=== PATIENT | male | born 1980 | race Caucasian/White ===

== ENCOUNTER 2023-09-08 11:05 | Outpatient (REF) | payer MEDICAID, SELFPAY ==
[2023-09-08 13:24] LABS: MANUAL DIFF FLAG NO
[2023-09-08 13:41] LABS: Basophils Absolute Auto 0.1 X10*3/uL (0.0-0.2); Eosinophils Absolute Auto 0.1 X10*3/uL (0.0-0.4); Hematocrit 40.9 % (42.0-52.0); Hemoglobin 14.3 g/dl (14.0-18.0); Imm Gran Abs Auto 0.02 X10*3/uL (0.00-0.03); Imm Gran Pct Auto 0.3 % (0.0-0.4); Lymphocytes Absolute Auto 1.2 X10*3/uL (1.2-4.9); Lymphocytes Percent Auto 19.6 % (20-40); Mean Corpuscular Volume 88.5 fL (80.0-98.0); Mean Platelet Volume 10.8 fL (9.4-12.4); Monocytes Absolute Auto 0.5 X10*3/uL (0.1-1.2); Monocytes Percent Auto 8.6 % (2-11); Neutrophils Absolute Auto 4.2 x10*3/uL (2.0-8.3); Neutrophils Percent Auto 68.5 % (45-73); Platelet Count 302 X10*3/uL (160-400); Red Blood Count 4.62 X10*6/uL (4.60-5.80); Red Cell Distribution Width 11.9 % (11.0-16.0); White Blood Count 6.1 X10*3/uL (4.8-10.8)
[2023-09-08 14:12] LABS: Alanine Aminotransferase 13 U/L (0-40); Albumin Level 4.2 g/dL (3.5-5.0); Alkaline Phosphatase 61 U/L (39-117); Anion Gap 11 (12-20); Aspartate Amino Transferase 15 U/L (5-37); Bilirubin Direct 0.2 mg/dL (0.0-0.5); Bilirubin Total 0.6 mg/dL (0.0-1.0); Blood Urea Nitrogen 14 mg/dL (9-16); Calcium 9.6 mg/dL (8.4-10.2); Carbon Dioxide 31 mmol/L (22-29); Chloride 104 mmol/L (96-108); Cholesterol 191 mg/dL (<200); Estimated Glomerular Filt Rate > 60; Glucose Random 73 mg/dL (60-115); HDL Cholesterol 31 mg/dL (>40); LDL Cholesterol Calculated 139 mg/dL (<100); Potassium 3.9 mmol/L (3.3-5.1); Sodium 142 mmol/L (135-145); Total Protein 7.3 g/dL (6.5-8.0); Triglycerides 108 mg/dL (<150)
[2023-09-08 14:33] LABS: TSH reflex Free T4 1.36 uIU/mL (0.32-4.0); Vitamin D 25-OH Total 36.6 ng/mL (>30)
[2023-09-08 14:37] LABS: Estimated Average Glucose 105 mg/dL; Hemoglobin A1c % 5.3 % (<6.0)
[2023-09-11 14:23] LABS: Testosterone, Total 148 ng/dL (250-1100)
== END 2023-09-08 11:06 | disposition home or self-care (01) ==
LOC: HO.HHCL 11:05
PROVIDERS: Visit Provider Family Medicine
DX: E66.9 Obesity, unspecified (principal); E29.1 Testicular hypofunction; I10 Essential (primary) hypertension
CPT/HCPCS: 36415; 80048; 80061; 80076; 82306; 83036; 83735; 84403; 84443; 85025

== ENCOUNTER 2023-09-30 15:39 | Outpatient (REF) | payer MEDICAID, SELFPAY ==
--- NOTE | ~2023-09-30 | US_ITS ---
EXAMINATION: US SCROTUM CLINICAL INFORMATION: Testicular swelling. COMPARISON: None available. TECHNIQUE: A sonogram of the scrotum was performed assessing oh-scale appearance and color Doppler flow. Spectral Doppler analysis of the arterial and venous flow were performed in the testes bilaterally. FINDINGS: RIGHT: Right testicle measures 5.0 x 2.2 x 2.8 cm, volume 16.1 mL. No focal testicular parenchymal lesions are visualized. Spectral Doppler analysis of the arterial and venous flow is normal in the right testis. Right epididymal head is normal in size. The majority of the right epididymis is not seen, however, the head appears within normal limits. No right varicocele is seen. There is a markedly large right hydrocele, 2 largest measure completely, approximately measures greater than 9.5 x 7.0 x greater than 8.3 cm. Right epididymal Doppler flow is normal. LEFT: Left testicle measures 4.4 x 2.6 x 3.1 cm, volume 18.6 mL. No focal testicular parenchymal lesions are visualized. Spectral Doppler analysis of the arterial and venous flow is normal in the left testis. Left epididymal head is normal in size. No left varicocele is seen. Small left hydrocele is seen. Left epididymal Doppler flow is normal. US/US scrotum IMPRESSION: 1. Normal testes and epididymides. 2. Markedly large right hydrocele. 3. Small left hydrocele.
== END 2023-09-30 15:40 | disposition home or self-care (01) ==
LOC: HO.HMGCX 15:39
PROVIDERS: PCP Family Medicine; Visit Provider Family Medicine
DX: N50.89 Other specified disorders of the male genital organs (principal)
CPT/HCPCS: 76870

== ENCOUNTER 2024-01-04 11:17 | Outpatient (AMB) | payer MEDICAID, SELFPAY ==
--- NOTE | 2024-01-04 11:47 | MHC.OFFVIS ---
Intake Intake Visit Reasons: hydrocele Intake Note: NEW Patient presents today to established treatment for hydrocele Meds- None Allergies to Antibiotic- No Known Allergies Blood Thinner- None Patient stated he has a right testicle hydrocele, he has pain sometimes when he takes a shower. Also hurts when he touch it or he is sleeping. Cold Storage Supervisor Required: No Accompanied by: Self / Same As Patient Allergies NKDA Allergy (Uncoded 01/04/24 19:42) Unknown Medication List - Last Reconciled 01/04/24 by FRANCY Woods-EMMANUEL adalimumab (Humira(CF) Pen) inject one - 40 mg/0.4 mL pen every 2 weeks subcut atenolol 25 mg PO DAILY buprenorphine-naloxone 8-2 mg (Suboxone) 20 mg sublingual QAM buspirone 7.5 mg PO BID cholecalciferol (vitamin D3) (Vitamin D3) 25 mcg PO QAM lisinopril-hydrochlorothiazide 10-12.5 mg 1 tab PO DAILY secukinumab (Cosentyx Pen 300 mg/2 Pens () 150 mg subcut Q4W sennosides (senna) 17.2 mg PO DAILY HPI HPI Comments History of Present Illness Details Tanner is a pleasant 43-year-old male patient of Dr. Tovar. He has a past medical history of chronic hepatitis-C, traumatic brain injury, dyslipidemia, vitamin-D deficiency, nicotine dependence, opiate abuse, asthma, constipation, hyperlipidemia, psoriasis, anxiety, hypogonadism, and hypertension. He presents to the office today as a new patient for right-sided hydrocele as well as hypogonadism. In discussion with the patient today reports having followed up with his PCP at which time recommendations were made for urology referral due to large right-sided hydrocele and hypogonadism. In review of patient's chart it appears scrotal ultrasound was ordered and reviewed. These results were reviewed with the patient today. Normal testes and epididymides, markedly large right hydrocele, and small left hydrocele. In assessment of the patient today large right-sided hydrocele noted. Discussed further treatment options with surveillance monitoring verses in office drainage verses surgical intervention with hydrocelectomy. Discussed risks and benefits of these interventions at length. He otherwise denies any bothersome urinary issues or concerns. He denies urinary urgency, urinary frequency, incontinence, nocturia, hematuria, dysuria, foul smelling urine, changes to urinary stream, flank pain, fever, and or chills. He is happy with his current voiding parameters. In review of patient's chart it appears testosterone was ordered and performed 09/02 148. He reports low libido. He otherwise offers no other issues or concerns at this time. [facility] Medical History (Updated 01/04/24 @ 19:48 by DOTTIE Woods) Testicular swelling, right Chronic hepatitis C Traumatic brain injury Dyslipidemia Vitamin D deficiency Tobacco dependence Opioid abuse Asthma Constipation Hyperlipidemia Psoriasis Anxiety disorder Hypogonadism, male Essential hypertension Review of Systems Const Reports as per HPI Eyes Reports no additional complaints ENT Reports no additional complaints Card Reports as per HPI Resp Reports as per HPI GI Reports as per HPI Reports as per HPI Musc Reports as per HPI Neuro Reports as per HPI Psych Reports as per HPI Endo Reports no additional complaints Abraham/Lymph Reports no additional complaints Aller/Immun Reports no additional complaints Physical Exam Const General: cooperative, healthy appearing, comfortable, no acute distress, well developed, alert and awake Orientation/consciousness: patient oriented x3 Limitations: no limitations HEENT Head: Yes normal to inspection, Yes normocephalic and Yes atraumatic Ears: hearing grossly normal bilaterally Eyes General: appearance normal, both eyes and all related structures Neck Neck: Yes normal visual inspection and Yes trachea midline Chest Chest palpation & inspection: normal inspection of the chest Resp Effort & Inspection: normal respiratory effort and able to speak in complete sentences Cardio Rate: regular rate GI Inspection: Yes normal to inspection General: Yes no CVA tenderness Back/Spine/Pelvis Back: no CVA tenderness Skin General skin exam: no rashes or lesions noted Neuro General: patient oriented x3 Extrem General: Yes normal to inspection Psych Appearance: grossly normal and well kempt Mental Status: mental status grossly normal Speech and movement: Normal speech and movement present and Clear speech present Affect: normal affect Attitude: cooperative Thought process: Normal thought process present Thought content: Normal thought content present Insight: Fair insight present (Psych) Judgement: Fair judgement present (Psych) Results AMB Urinalysis, Automated UA Leukoctes 0 Ranjana/uL Last Edit by Teena Casanova CMA on 01/04/24 11:58 UA Nitrite Negative Last Edit by Teena Casanova CMA on 01/04/24 11:58 UA Urobilinogen 0.2 mg/dL Last Edit by Teena Casanovaeaston Casanova, [facility] on 01/04/24 11:58 UA Protein 0 mg/dL Last Edit by [facility], [facility] on 01/04/24 11:58 UA pH 6.0 Last Edit by [facility], [facility] on 01/04/24 11:58 UA Blood 0 Filiberto/uL Last Edit by [facility], [facility] on 01/04/24 11:58 UA Specific [place] 1.015 Last Edit by [facility], [facility] on 01/04/24 11:58 UA Ketone Negative Last Edit by [facility], [facility] on 01/04/24 11:58 UA Bilirubin 0 mg/dL Last Edit by [facility], [facility] on 01/04/24 11:58 UA Glucose 0 mg/dL Last Edit by [facility], [facility] on 01/04/24 11:58 Results Reviewed Results Reviewed: Laboratory Last Values Urine pH (Auto) 6.0 01/04/24 11:57 Specific [place] (Auto) 1.015 01/04/24 11:57 Urine Protein (Auto) 0 mg/dL 01/04/24 11:57 Glucose (UA)(Auto) 0 mg/dL 01/04/24 11:57 Urine Ketones (Auto) Negative 01/04/24 11:57 Urine Blood (Auto) 0 Filiberto/uL 01/04/24 11:57 Urine Nitrite (Auto) Negative 01/04/24 11:57 Urine Bilirubin (Auto) 0 mg/dL 01/04/24 11:57 Urine Urobilinogen (Auto) 0.2 mg/dL 01/04/24 11:57 Leukocyte Esterase (Auto) 0 Ranjana/uL 01/04/24 11:57 Date of Service: 09/30/23 Procedure(s): US scrotum FINDINGS: RIGHT: Right testicle measures 5.0 x 2.2 x 2.8 cm, volume 16.1 mL. No focal testicular parenchymal lesions are visualized. Spectral Doppler analysis of the arterial and venous flow is normal in the right testis. Right epididymal head is normal in size. The majority of the right epididymis is not seen, however, the head appears within normal limits. No right varicocele is seen. There is a markedly large right hydrocele, 2 largest measure completely, approximately measures greater than 9.5 x 7.0 x greater than 8.3 cm. Right epididymal Doppler flow is normal. LEFT: Left testicle measures 4.4 x 2.6 x 3.1 cm, volume 18.6 mL. No focal testicular parenchymal lesions are visualized. Spectral Doppler analysis of the arterial and venous flow is normal in the left testis. Left epididymal head is normal in size. No left varicocele is seen. Small left hydrocele is seen. Left epididymal Doppler flow is normal. IMPRESSION: 1. Normal testes and epididymides. 2. Markedly large right hydrocele. 3. Small left hydrocele. Assessment & Plan Assessment & Plan (1) Hydrocele: Code(s): N43.3 - Hydrocele, unspecified (2) Hypogonadism, male: Code(s): E29.1 - Testicular hypofunction (3) Low libido: Code(s): R68.82 - Decreased libido Plan: Risks, benefits and alternatives to therapy were discussed. These include but are not limited to infection, bleeding, damage to local organs and tissues, need for further interventions. ? Anesthetic risks regarding cardiac arrhythmia, blood clots, and potential mortality were discussed. The patient understands the typical recovery time and the outpatient nature of the procedure. After consideration of these risks the patient gives full informed consent and they wish to move ahead with the procedure. Plan In office urinalysis results reviewed with the patient today; as noted above. Recent scrotal ultrasound results reviewed with the patient today; as noted above. Recent testosterone results reviewed with the patient today; as noted above. Discussed obtaining redraw of testosterone, free testosterone, PSA, LH, SHBG, estradiol, and FSH for further assessment evaluation. Discussed potential causes of hydrocelectomy as well as hypogonadism. Discussed at length further treatment options for large right-sided hydrocele; discussed in office drainage versus surveillance monitoring verses hydrocelectomy; discussed risks and benefits of these interventions at length. Patient reports to be happy with current voiding parameters. He denies any bothersome urinary issues. Will schedule for right-sided hydrocelectomy as discussed Follow-up per doctor's orders status post hydrocelectomy; or sooner with any issues, concerns, and or questions. Follow-up with labs in 1-3 months. Orders: Orders Prolactin Today E29.1 - Testicular hypofunction Prostate Specific Antigen Today E29.1 - Testicular hypofunction AMB Urinalysis Automated Today R33.9 - Retention of urine, unspecified Testosterone, Free/Total Today E29.1 - Testicular hypofunction Lutenizing Hormone Today E29.1 - Testicular hypofunction Sex Hormone Binding Globulin Today E29.1 - Testicular hypofunction Estradiol Ultra Sensitive Today E29.1 - Testicular hypofunction Follicle Stimulating Hormone Today E29.1 - Testicular hypofunction Patient Instructions: The patient had an opportunity to ask questions regarding the treatment plan. All questions were answered. Physical exam, labs, and imaging were discussed and reviewed in detail. As well as risks, benefits, and discussion of treatment choices. No major barriers to understanding were identified. The patient expressed understanding and agreement with the above treatment plan. The patient was made aware they should contact our office by phone for worsening of their current condition, the appearance of new symptoms, or with any questions or concerns. Compliance is encouraged with any medications and follow up testing that is ordered. It is a privilege to be allowed the opportunity to participate in? your urological care.? Again, if you have any questions or concerns If you have any questions or concerns please do not hesitate to contact me. The office is [phone]. This note is constructed using voice recognition software. While every effort has been made to ensure accuracy iron assorter errors may have been included. Yours sincerely, DOTTIE Woods Coding Level of Care Code New Pt Level 4 (75314) Diagnoses Hydrocele N43.3 Hypogonadism, male E29.1 Low libido R68.82
== END 2024-01-04 12:30 | disposition home or self-care (01) ==
PROVIDERS: PCP Family Medicine; Visit Provider Nurse Practitioner Family
DX: N43.3 Hydrocele, unspecified (principal); E29.1 Testicular hypofunction; R68.82 Decreased libido; R33.9 Retention of urine, unspecified
CPT/HCPCS: 99204

== ENCOUNTER 2024-01-04 11:17 | Outpatient (REF) | payer MEDICAID, SELFPAY ==
[2024-01-04 13:41] LABS: Prostate Specific Antigen 0.62 ng/mL (<0.05-4.0)
[2024-01-05 20:04] LABS: Sex Hormone Binding Globulin 27 nmol/L (10-50)
[2024-01-05 20:12] LABS: Lutenizing Hormone 2.4 mIU/mL (1.5-9.3); Prolactin 13.5 ng/mL (2.0-18.0)
[2024-01-08 19:24] LABS: Testosterone, Free 97.4 pg/mL (35.0-155.0); Testosterone, Total 473 ng/dL (250-1100)
[2024-01-10 02:14] LABS: Estradiol Ultra Sensitive 30 pg/mL (< OR = 29)
== END 2024-01-04 11:18 | disposition home or self-care (01) ==
LOC: HO.LAB 11:17
PROVIDERS: PCP Family Medicine; Visit Provider Nurse Practitioner Family
DX: E29.1 Testicular hypofunction (principal); N43.3 Hydrocele, unspecified; R68.82 Decreased libido; R33.9 Retention of urine, unspecified; Z79.899 Other long term (current) drug therapy
CPT/HCPCS: 36415; 81003; 82670; 83001; 83002; 84146; 84153; 84270; 84402; 84403; 99212

== ENCOUNTER 2024-02-11 14:01 | Outpatient (AMB) | payer MEDICAID, SELFPAY ==
--- NOTE | 2024-02-11 14:01 | A.OFFVIS_ITS ---
Intake Visit Reasons: Testo Labs- follow up Intake Note: Meds- None Allergies to Antibiotic- No Known Allergies Blood Thinner- None Proration Clerk Required: No Accompanied by: Self / Same As Patient Allergies NKDA Allergy (Uncoded 02/11/24 14:33) Unknown Medication List - Last Reconciled 02/11/24 by FRANCY Woods-EMMANUEL adalimumab (Humira(CF) Pen) inject one - 40 mg/0.4 mL pen every 2 weeks subcut atenolol 25 mg PO DAILY buprenorphine-naloxone 8-2 mg (Suboxone) 20 mg sublingual QAM buspirone 7.5 mg PO BID cholecalciferol (vitamin D3) (Vitamin D3) 25 mcg PO QAM lisinopril-hydrochlorothiazide 10-12.5 mg 1 tab PO DAILY secukinumab (Cosentyx Pen 300 mg/2 Pens () 150 mg subcut Q4W sennosides (senna) 17.2 mg PO DAILY HPI Comments Details: Tanner is a pleasant 43-year-old male patient of Dr. Tovar. He has a past medical history of chronic hepatitis-C, traumatic brain injury, dyslipidemia, vitamin-D deficiency, nicotine dependence, opiate abuse, asthma, constipation, hyperlipidemia, psoriasis, anxiety, hypogonadism, and hypertension. He is being followed up on today via video telehealth for his hypogonadism as well as right-sided hydrocele. In discussion with the patient today he reports to be doing and feeling well. Recent testosterone labs reviewed with the patient today as noted and trended below. Testosterone: 09/02 148, 01/01 473 Free testosterone: 01/01 97.4 Prolactin: 01/01 13.5 LH: 01/01 2.4 FSH: 01/01 3.0 Estradiol: 01/01 30 SHB/24 27 Discussed potential causes for previous hypogonadism. He discusses not having had received a phone call from our office regarding right-sided hydrocelectomy. In review of patient's chart it appears there were multiple attempts to call the patient however was unsuccessful. Reviewed contact information with the patient today to ensure contact his correct. Previous workup has included a scrotal ultrasound noting normal testes and epididymides, markedly large right hydrocele, and small left hydrocele. He otherwise denies any bothersome urinary issues or concerns. He denies urinary urgency, urinary frequency, incontinence, nocturia, hematuria, dysuria, foul smelling urine, changes to urinary stream, flank pain, fever, and or chills. He is happy with his current voiding parameters. He otherwise offers no other issues or concerns at this time. [facility] Medical History Testicular swelling, right Chronic hepatitis C Traumatic brain injury Dyslipidemia Vitamin D deficiency Tobacco dependence Opioid abuse Asthma Constipation Hyperlipidemia Psoriasis Anxiety disorder Hypogonadism, male Essential hypertension Review of Systems Const Reports as per HPI Eyes Reports no additional complaints ENT Reports no additional complaints Card Reports as per HPI Resp Reports as per HPI GI Reports as per HPI Reports as per HPI Musc Reports as per HPI Neuro Reports as per HPI Psych Reports as per HPI Endo Reports no additional complaints Abraham/Lymph Reports no additional complaints Aller/Immun Reports no additional complaints Physical Exam Const General: cooperative, healthy appearing, comfortable, no acute distress, well developed, alert and awake Orientation/consciousness: patient oriented x3 Resp Effort & Inspection: normal respiratory effort and able to speak in complete sentences Neuro General: patient oriented x3 Psych Appearance: grossly normal and well kempt Mental Status: mental status grossly normal Speech and movement: Normal speech and movement present and Clear speech present Affect: normal affect Attitude: cooperative Thought process: Normal thought process present Thought content: Normal thought content present Insight: Fair insight present (Psych) Judgement: Fair judgement present (Psych) Telehealth Telehealth Telehealth Platform: [facility] Location of provider rendering services: practice address Location of patient: address on file Patient Identification confirmed using: Name, : Yes Telehealth method: video Patient verbally consented to treatment: Yes Patient verbally consented to billing insurance company: Yes Patient informed of any privacy concerns related to visit: Yes Minutes spent on Phone/Video with Pt.: 15 Assessment & Plan Assessment & Plan (1) Low libido: Code(s): R68.82 - Decreased libido Category: Medical (2) Hydrocele: Code(s): N43.3 - Hydrocele, unspecified Category: Medical (3) Hypogonadism, male: Code(s): E29.1 - Testicular hypofunction Category: Medical Plan: Risks, benefits and alternatives to therapy were discussed. These include but are not limited to infection, bleeding, damage to local organs and tissues, need for further interventions. ? Anesthetic risks regarding cardiac arrhythmia, blood clots, and potential mortality were discussed. The patient understands the typical recovery time and the outpatient nature of the procedure. After consideration of these risks the patient gives full informed consent and they wish to move ahead with the procedure. Plan Recent hypogonadism labs reviewed with the patient today; as noted above. Discussed at length potential causes of low libido Discussed lifestyle modifications to assist with low libido. Discussed right-sided hydrocelectomy. Risks and benefits of this procedure was discussed All questions were answered Will schedule for right-sided hydrocelectomy as discussed. Follow-up per Dr. Dave's order; or sooner with any issues, concerns, and or questions. Patient Instructions: The patient had an opportunity to ask questions regarding the treatment plan. All questions were answered. Physical exam, labs, and imaging were discussed and reviewed in detail. As well as risks, benefits, and discussion of treatment choices. No major barriers to understanding were identified. The patient expressed understanding and agreement with the above treatment plan. The patient was made aware they should contact our office by phone for worsening of their current condition, the appearance of new symptoms, or with any questions or concerns. Compliance is encouraged with any medications and follow up testing that is ordered. It is a privilege to be allowed the opportunity to participate in? your urological care.? Again, if you have any questions or concerns If you have any questions or concerns please do not hesitate to contact me. The office is [phone]. This note is constructed using voice recognition software. While every effort has been made to ensure accuracy chief commercial officer errors may have been included. Yours sincerely, DOTTIE Woods Coding Level of Care Code Tele Est Pt Level 3 (47333) Diagnoses Low libido R68.82 Hydrocele N43.3 Hypogonadism, male E29.1
== END 2024-02-11 14:48 | disposition home or self-care (01) ==
LOC: HO.HUSH 14:01
PROVIDERS: PCP Family Medicine; Visit Provider Nurse Practitioner Family
DX: R68.82 Decreased libido (principal); N43.3 Hydrocele, unspecified; E29.1 Testicular hypofunction
CPT/HCPCS: 99213

== ENCOUNTER → 2024-02-11 14:01 | Outpatient (BNVA) | payer MEDICAID, SELFPAY | PROVIDERS: PCP Family Medicine; Visit Provider Nurse Practitioner Family ==

== ENCOUNTER 2024-04-03 08:57 | Day surgery (SDC) | payer MEDICAID, SELFPAY ==
[2024-04-03 10:06] VITALS: BP 151/94; PULSE 66; RESP 16; TEMP 36.6; O2SAT 95
[2024-04-03 10:15] VITALS: BMI 31.6
--- NOTE | 2024-04-03 10:50 | HO.ANESPROP2 ---
COUNT INCLUDES THE [facility] Active Problems Active Problems: All Active Problems Low libido (Acute) Hydrocele (Acute) Hypogonadism, male (Acute) Past Medical History Medical History Testicular swelling, right Chronic hepatitis C Traumatic brain injury Dyslipidemia Vitamin D deficiency Tobacco dependence Opioid abuse Asthma Constipation Hyperlipidemia Psoriasis Anxiety disorder Hypogonadism, male Essential hypertension Surgical History History of Problems with Anesthesia: No Social History Social History Patient Tobacco Use Status: Former Tobacco user Use of substances other than those prescribed or required for medical reasons: No Are you DNR?: No Advance Directives: No Advance Directives Information Provided: Yes Meds Allergies Allergy/AdvReac Type Severity Reaction Status Date / Time NKDA Allergy Unknown Uncoded 02/11/24 14:33 Home Medications ?Medication ?Instructions ?Recorded ?Confirmed ?Last Taken ?Type adalimumab 40 mg/0.4 mL See Rx Instructions subcut .COMPLEX 12/28/23 Unknown History subcutaneous pen kit (Humira(CF) Pen) atenolol 25 mg tablet 25 mg PO DAILY 12/28/23 04/03/24 History buprenorphine 8 mg-naloxone 2 mg 20 mg sublingual QAM 12/28/23 Unknown History sublingual film (Suboxone) buspirone 7.5 mg tablet 7.5 mg PO BID anxiety 12/28/23 Unknown History cholecalciferol (vitamin D3) 25 25 mcg PO QAM 12/28/23 Unknown History mcg (1,000 unit) capsule (Vitamin D3) lisinopril 10 1 tab PO DAILY 12/28/23 Unknown History mg-hydrochlorothiazide 12.5 mg tablet secukinumab 150 mg/mL subcutaneous 150 mg subcut Q4W 12/28/23 Unknown History pen injector (Cosentyx Pen 300 mg/2 Pens () sennosides 8.6 mg tablet (senna) 17.2 mg PO DAILY 12/28/23 Unknown History Exam Height,Weight and Vital Signs: Height 5 ft 11 in Weight 102.784 kg Last Vital Signs Temp 97.8 F 04/03/24 10:06 Pulse 66 04/03/24 10:06 Resp 16 04/03/24 10:06 BP 151/94 H 04/03/24 10:06 Pulse Ox 95 04/03/24 10:06 O2 Del Method Room Air 04/03/24 10:06 Airway Mallampati Class: III TM Dist: >3cm Neck ROM: Full Loose/Missing/Broken Teeth: No Heart: RRR Lungs: CTA Assessment and Plan Assessment Anesthesia Assessment: Anesthesia Plan Discussed and Chart Reviewed Final Anesthetic Review History of Problems with Anesthesia: No NPO: Yes ASA Class: II Final Preanesthetic Review: Meds/Allgs Chart Reviewed, Consent Obtained/Reviewed and Anes Risks/Benef Reviewed Patient Risk: Low Procedure Risk: Low Anesthetic Plan Anesthetic Plan: GA Disposition: Standard PACU
[2024-04-03] MEDS: Lactated Ringers 1,000 ML 50 ML IVCONT (11:45)
--- NOTE | 2024-04-03 13:02 | MHC.SHP ---
Pre-Procedural Eval Section A - 24 Hr Update-Section A only Date of Service: 04/03/24 The patient is an INPATIENT: No Changes since office visit: No Cold of Flu in the past 2 weeks, No New Medical Problems, No Changes in Medication and No Patient answered all questions The patient has been examined within 24 hours of the surgical procedure. The History & Physical has been completed within 30 days and I have reviewed it.: Yes Section B - Complete if H&P > 30 days Chief Complaint: Hydrocele, unspecified Allergies: Allergies Allergy/AdvReac Type Severity Reaction Status Date / Time NKDA Allergy Unknown Uncoded 02/11/24 14:33 Plan Diagnosis/Plan: Unchanged (Right hydrocelectomy) I have reviewed the history and physical and performed a pertinent physical examination on my patient. No changes have occurred unless specified. Time Spent With Patient Time: Total time managing care of this patient today ____ minutes.
--- NOTE | 2024-04-03 14:18 | W.PM.OPN ---
Operative Note Operative Note Date of Service: 04/03/24 Narrative: PreOperative Diagnosis: Right hydrocele Post Operative Diagnosis: Right large hydrocele Procedure: Hydrocelectomy Surgeon: Dr James Dave Anesthesia: General Indications for procedure: Large right hydrocele with persistent discomfort Procedure: After informed consent was verified the patient was brought to the operating room and placed in a supine position. Anesthesia was administered per protocol. Patient was appropriately shaved and genitals were prepped and draped in sterile fashion. Safety pause time-out was performed. Antibiotics being given. Local anesthetic was infiltrated under the skin in a horizontal fashion on the scrotum. Skin incision was made using a blade through the subdermal layer. The tunica around the testicle was elevated and dissected free from surrounding tissue. The avascular plane around the tunica was entered and using a wet sponge blunt dissection was performed. Any small bleeding perforators were cauterized. The testicle was delivered out of the scrotum and opened in a longitudinal fashion.. Fluid was removed - 500 cc. The testicle sac was inverted. Excess thickened sac was dissected and removed using a Thunderbeat cautery instrument to minimize porst procedure bleeding. A bottle neck procedure was performed to approximate edges using a running 3-0 Vicryl suture. Skin edges of the tunica were cauterized carefully in order to try to minimize postprocedure hematoma. Small accessory appendices were removed from the head of epididymis. The testicle with resected sac was placed back into a dependent portion of the scrotum. Geremias drain with safety pin was placed through dependent portion of scrotum and brought out through incision. Overlying skin fascia layer was closed with a running 3-0 Vicryl suture. Skin was closed with interrupted 4-0 chromic sutures. Soft fluff sponges were placed with mesh pants as dressing. Local anesthetic was placed in inguinal cord for post procedure pain relief. Patient tolerated procedure well was extubated in operating room transferred in stable condition to the recovery area Pathology: Hydrocele sac Drains: Geremias drain
[2024-04-03 14:28] VITALS: BP 141/95; PULSE 66; RESP 18; TEMP 36.1; O2SAT 99
[2024-04-03 14:33] VITALS: BP 138/83; PULSE 71; RESP 18; O2SAT 99
[2024-04-03 14:38] VITALS: BP 151/85; PULSE 69; RESP 18; O2SAT 99
[2024-04-03 14:43] VITALS: BP 156/85; PULSE 68; RESP 18; TEMP 36.2; O2SAT 99
[2024-04-03 14:55] VITALS: BP 158/86; PULSE 60; RESP 18; TEMP 36.3; O2SAT 99
== END 2024-04-03 15:29 | disposition home or self-care (01) ==
PROVIDERS: PCP Family Medicine; Visit Provider Urology
PROC: (CPT 55060; principal; 2024-04-03 11:00)
DX: N43.3 Hydrocele, unspecified (principal); R68.82 Decreased libido; E29.1 Testicular hypofunction; B18.2 Chronic viral hepatitis C; I10 Essential (primary) hypertension; E78.5 Hyperlipidemia, unspecified; F41.9 Anxiety disorder, unspecified; Z87.820 Personal history of traumatic brain injury; Z79.620 Long term (current) use of immunosuppressive biologic; Z79.899 Other long term (current) drug therapy; Z87.891 Personal history of nicotine dependence
CPT/HCPCS: 55040; 88302; J0131; J0690; J1100; J1885; J2250; J2405; J2704; J2795; J3010

== ENCOUNTER → 2024-04-03 08:57 | Outpatient (BNV) | payer MEDICAID, SELFPAY | PROVIDERS: PCP Family Medicine; Visit Provider Urology | DX: N43.3 Hydrocele, unspecified (principal) | CPT/HCPCS: 55040 ==

== ENCOUNTER 2024-04-26 13:52 | Outpatient (AMB) | payer MEDICAID, SELFPAY ==
--- NOTE | 2024-04-26 13:54 | A.OFFVIS_ITS ---
Intake Visit Reasons: Hydrocelectomy- follow up Intake Note: Patient presents today for post op Urology Medications: none Allergies to Antibiotic: No Known Allergies Blood Thinner: None Central Office Repairer Required: No Accompanied by: Self / Same As Patient Allergies NKDA Allergy (Uncoded 04/26/24 14:18) Unknown HPI Comments Details: Tanner is a pleasant 43-year-old male patient of Dr. Tovar. He has a past medical history of chronic hepatitis-C, traumatic brain injury, dyslipidemia, vitamin-D deficiency, nicotine dependence, opiate abuse, asthma, constipation, hyperlipidemia, psoriasis, anxiety, hypogonadism, and hypertension. He presents to the office today for follow-up. He is status post right-sided hydrocelectomy with Dr. Dave on 04/03. He reports since his procedure he has been doing and feeling well. In assessment of the patient today incision site appears to be healing no drainage or redness noted. Patient continues with right-sided scrotal swelling however reassurance provided. He otherwise denies any bothersome urinary issues. Patient with a previous hypogonadism workup see labs below: Testosterone: 09/02 148, 01/01 473 Free testosterone: 01/01 97.4 Prolactin: 01/01 13.5 LH: 01/01 2.4 FSH: 01/01 3.0 Estradiol: 01/01 30 SHB/24 27 He denies urinary urgency, urinary frequency, incontinence, nocturia, hematuria, dysuria, foul smelling urine, changes to urinary stream, flank pain, fever, and or chills. He is happy with his current voiding parameters. He otherwise offers no other issues or concerns at this time. [facility] Medical History Testicular swelling, right Chronic hepatitis C Traumatic brain injury Dyslipidemia Vitamin D deficiency Tobacco dependence Opioid abuse Asthma Constipation Hyperlipidemia Psoriasis Anxiety disorder Hypogonadism, male Essential hypertension Social History Comment: COUNTS CORRECT Patient Tobacco Use Status: Former Tobacco user Review of Systems Const Reports as per HPI Eyes Reports no additional complaints ENT Reports no additional complaints Card Reports as per HPI Resp Reports as per HPI GI Reports as per HPI Reports as per HPI Musc Reports as per HPI Neuro Reports as per HPI Psych Reports as per HPI Endo Reports no additional complaints Abraham/Lymph Reports no additional complaints Aller/Immun Reports no additional complaints Physical Exam Const General: cooperative, healthy appearing, comfortable, no acute distress, well developed, alert and awake Orientation/consciousness: patient oriented x3 Resp Effort & Inspection: normal respiratory effort and able to speak in complete sentences Neuro General: patient oriented x3 Psych Appearance: grossly normal and well kempt Mental Status: mental status grossly normal Speech and movement: Normal speech and movement present and Clear speech present Affect: normal affect Attitude: cooperative Thought process: Normal thought process present Thought content: Normal thought content present Insight: Fair insight present (Psych) Judgement: Fair judgement present (Psych) Results AMB Urinalysis, Automated UA Leukoctes 0 Ranjana/uL Last Edit by [email or web address] on 04/26/24 14:35 UA Nitrite Negative Last Edit by [email or web address] on 04/26/24 14:35 UA Urobilinogen 0.2 mg/dL Last Edit by [email or web address] on 04/26/24 14:35 UA Protein 0 mg/dL Last Edit by [email or web address] on 04/26/24 14:35 UA pH 5.5 Last Edit by [email or web address] on 04/26/24 14:35 UA Blood 0 Filiberto/uL Last Edit by [email or web address] on 04/26/24 14:35 UA Specific Brewster 1.025 Last Edit by [email or web address] on 04/26/24 14:35 UA Ketone Negative Last Edit by [email or web address] on 04/26/24 14:35 UA Bilirubin 0 mg/dL Last Edit by [email or web address] on 04/26/24 14:35 UA Glucose 0 mg/dL Last Edit by [email or web address] on 04/26/24 14:35 Results Reviewed Results Reviewed: Laboratory Last Values Urine pH (Auto) 5.5 04/26/24 14:34 Specific Brewster (Auto) 1.025 04/26/24 14:34 Urine Protein (Auto) 0 mg/dL 04/26/24 14:34 Glucose (UA)(Auto) 0 mg/dL 04/26/24 14:34 Urine Ketones (Auto) Negative 04/26/24 14:34 Urine Blood (Auto) 0 Filiberto/uL 04/26/24 14:34 Urine Nitrite (Auto) Negative 04/26/24 14:34 Urine Bilirubin (Auto) 0 mg/dL 04/26/24 14:34 Urine Urobilinogen (Auto) 0.2 mg/dL 04/26/24 14:34 Leukocyte Esterase (Auto) 0 Ranjana/uL 04/26/24 14:34 Assessment & Plan Assessment & Plan (1) Hydrocele: Code(s): N43.3 - Hydrocele, unspecified Category: Medical Plan Incision site appears to be healing well; as noted above. In office urinalysis results reviewed with the patient today; as noted above. Patient currently denies any bothersome urinary issues or concerns. Reports be happy with current voiding parameters. Reassurance provided. Follow-up in 3 months; if not sooner with any issues, concerns, and or questions. Orders: Orders AMB Urinalysis Automated Today Z13.9 - Encounter for screening, unspecified Patient Instructions: The patient had an opportunity to ask questions regarding the treatment plan. All questions were answered. Physical exam, labs, and imaging were discussed and reviewed in detail. As well as risks, benefits, and discussion of treatment choices. No major barriers to understanding were identified. The patient expressed understanding and agreement with the above treatment plan. The patient was made aware they should contact our office by phone for worsening of their current condition, the appearance of new symptoms, or with any questions or concerns. Compliance is encouraged with any medications and follow up testing that is ordered. It is a privilege to be allowed the opportunity to participate in? your urological care.? Again, if you have any questions or concerns If you have any questions or concerns please do not hesitate to contact me. The office is [phone]. This note is constructed using voice recognition software. While every effort has been made to ensure accuracy tribal judge errors may have been included. Yours sincerely, DOTTIE Woods Coding Level of Care Code Global (35665) Diagnoses Hydrocele N43.3
== END 2024-04-26 14:21 | disposition home or self-care (01) ==
LOC: HO.HUSH 13:52
PROVIDERS: PCP Family Medicine; Visit Provider Nurse Practitioner Family
DX: Z13.9 Encounter for screening, unspecified (principal); N43.3 Hydrocele, unspecified
CPT/HCPCS: 99024

== ENCOUNTER → 2024-04-26 13:52 | Outpatient (BNVA) | payer MEDICAID, SELFPAY | PROVIDERS: PCP Family Medicine; Visit Provider Nurse Practitioner Family | DX: Z48.816 Encounter for surgical aftercare following surgery on the genitourinary system (principal); Z87.438 Personal history of other diseases of male genital organs | CPT/HCPCS: 81003; 99212 ==